=== PATIENT | female | born 1985 | race Caucasian/White ===

== ENCOUNTER 2018-08-06 20:29 | Emergency (ER) | payer OTHER ==
[~2018-08-06] VITALS: Ht 162.6 cm; Wt 58.1 kg
[~2018-08-06 20:29] MED LIST: ADDERALL 20 MG20 M1 PO; MACROBID 100 M100 M1 PO; ONDANSETRON HCL4 M2 PO
[2018-08-06 21:07] LABS: ABSOLUTE NEUTROPHILS 6.5 thou/uL (1.4-8.2); BASOPHILS 0.2 % (0.0-2.0); EOSINOPHILS 0.4 % (0.0-3.0); HEMATOCRIT 41.5 % (37.0-47.0); HEMOGLOBIN 14.5 gm/dL (12.0-15.0); LYMPHOCYTES 30.1 % (24.0-44.0); MCH 30.4 pg (26.0-34.0); MONOCYTES 5.1 % (1.0-8.0); PLATELET COUNT 293 thou/uL (150-400); POLYS 64.2 % (36.0-66.0); RBC 4.77 mil/uL (4.20-5.00); RDW 12.1 % (10.5-14.5); WBC 10.1 thou/uL (4.0-11.0)
[2018-08-06 21:14] LABS: URINE BILIRUBIN NEGATIVE (Negative); URINE BLOOD NEGATIVE (Negative); URINE CLARITY CLEAR; URINE COLOR YELLOW; URINE GLUCOSE-RANDOM* NEGATIVE (Negative); URINE KETONES NEGATIVE (Negative); URINE LEUKOCYTES-REFLEX NEGATIVE (Negative); URINE NITRITE-REFLEX NEGATIVE (Negative); URINE PROTEIN (DIPSTICK) NEGATIVE (Negative); URINE UROBILINOGEN 0.2 E.U./dl (0.2-1.0)
[2018-08-06 21:14] LABS: CALCIUM 9.4 mg/dL (8.5-10.1); CREATININE 0.8 mg/dL (0.6-1.0); POTASSIUM 3.6 mmol/L (3.5-5.1)
[2018-08-06 21:20] LABS: ALBUMIN 3.9 g/dL (3.4-5.0); TOTAL BILIRUBIN 0.4 mg/dL (<0.1-1.0)
[2018-08-06] MEDS ORDERED: NORCO 5-325 TA1 EACH PO (22:27)
[2018-08-06 22:35] VITALS: BP 131/98
== END 2018-08-06 23:09 | disposition home or self-care (01) ==
LOC: ER 20:29
PROVIDERS: Emergency Medicine
DX: N83.201 Unspecified ovarian cyst, right side (principal); F90.9 Attention-deficit hyperactivity disorder, unspecified type